=== PATIENT | female | born 1925 | race Caucasian/White ===

== ENCOUNTER 2017-07-02 23:02 | Emergency (ER) | payer OTHER ==
[~2017-07-02] VITALS: Ht 152.4 cm; Wt 45.4 kg
[~2017-07-02 23:02] MED LIST: ACET-1571 PO; ACET325T21 PO; ALPR0.254 PO; ASPI325T70 PO; ASPI325T8 PO; BIMA2.5D OP; BRIM5DRO3 OP; CEPH-264 PO; DICL100G18 TP; DOCU-109 PO; DONE10TA14 PO; Doxycycline Hyclate PO; ERGO500027 PO; FLUT9.9S NS; HYDR12.53 PO; LOSA50TA6 PO; MAG355OR32 PO; MAGN400O7 PO; MEMA10TA PO; MEMA21CA PO; METO-239 PO; MULT-245 PO; POLY15DR18 OP; RANI150T6 PO; SIMV10TA3 PO; TELM80TA5 PO; [UNRECOGNIZED DRUG - CODE] PO
--- NOTE | 2017-07-03 00:05 | RAD ---
PQRS Compliance Statement: One or more of the following individualized dose reduction techniques were utilized for this examination: 1. Automated exposure control 2. Adjustment of the mA and/or kV according to patient size 3. Use of iterative reconstruction technique CT head and cervical spine without contrast 07/02/2017 11:43 PM INDICATION: Fall COMPARISON: None available TECHNIQUE: Multiple axial CT images of the head were obtained from skull base through the vertex without intravenous contrast. Multiple axial CT images of the cervical spine were obtained without intravenous contrast. Coronal and sagittal reformats are provided. FINDINGS: Head: Ventricles, sulci and basal cisterns are prominent, compatible with generalized cerebral volume loss. Low attenuation the periventricular white matter is compatible with chronic small vessel ischemic changes. There is a hyperattenuating focus in the left cerebellum measuring 4 mm which may represent intraparenchymal hemorrhage versus a cavernoma. A right parietal scalp hematoma is present. There is no hydrocephalus. Hernández-white matter differentiation is normal. There is no mass, mass effect or midline shift. Posterior fossa is normal in appearance. Visualized portions of the orbits are normal. Mastoid air cells are well aerated. Scalp and calvaria are normal. Cervical spine: There is grade 1 anterolisthesis of C4 on C5. Degenerative changes are noted at the atlantoaxial articulation. Skull base is intact. Craniocervical junction is normal. There is osseous fusion of C5-C6. Disc height loss is noted at C6-C7. There is focal kyphosis at C5-C6. Findings are stable dating back to October 31, 2014. No acute fracture is identified. There is severe cervical spondylosis. There is moderate spinal canal stenosis at C5-C6. There is no prevertebral soft tissue swelling. There is moderate mucosal thickening of the right maxillary sinus. Thyroid gland is normal in appearance. Mild emphysematous changes are noted in the lungs. Biapical pleural-parenchymal scarring is present. IMPRESSION: 1. Right parietal scalp hematoma is present. No adjacent intracranial hemorrhage is present. However, there is a 4 mm hyperattenuating focus in the left cerebellum which may represent a tiny focus of intraparenchymal hemorrhage versus more likely a cavernoma. Further evaluation with MRI may be of benefit. 2. No acute fracture of the cervical spine. Advanced cervical spondylosis. Critical findings were discussed with Dr. Sears at 12:00 AM on 07/03/2017. Electronically signed by: Kath Lynn MD (07/03/2017 12:02 AM) [facility]
--- NOTE | 2017-07-03 02:21 | RAD ---
EXAM: MRI BRAIN WITHOUT CONTRAST. HISTORY: Fall, head injury, dementia. Left cerebellar lesion. TECHNIQUE: Magnetic resonance images of the brain were obtained without intravenous contrast. Fast technique was used given patient motion. COMPARISON: CT July 02, 2017. FINDINGS: There are limitations from motion artifact on some series. The examination remains diagnostic for the following. There is a focus of susceptibility-weighted signal loss medially in the left cerebellar hemisphere at the site of concern. There is no surrounding vasogenic edema to indicate acute hemorrhage. This is consistent with a small cavernoma. Chronic microhemorrhages are seen in the right cerebellar hemisphere and right temporal lobe. A right thalamic lacunar has associated chronic blood products. There is no diffusion restriction. Extensive white matter T2/FLAIR hyperintensity is consistent severe chronic microangiopathic change. Prominence of the lateral ventricles and hemispheric sulci indicates moderate atrophy. There is an air-fluid level in the right maxillary sinus. There are changes of bilateral cataract surgery. The temporal bones are unremarkable. The calvarium demonstrates no suspicious lesions. There is a moderate right parietal scalp hematoma. There is anterolisthesis at each level from C3 through C5. This measures 4 mm at C4-5. Refer to the recent cervical spine study for more detail. IMPRESSION: 1. The left cerebellar focus of concern is consistent with a chronic hemorrhage or cavernoma. No acute hemorrhage. CT follow-up could be performed if there is persistent concern. 2. 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 3. Moderate atrophy. 4. Acute right maxillary sinus disease. 5. Refer to the recent CT of the cervical spine for more information. Electronically signed by: Osmin Longoria MD (07/03/2017 2:17 AM) [facility]
[2017-07-03] MEDS ORDERED: LIDOCAINE 1% PF 2 ML VIAL. ONE (02:37)
--- NOTE | 2017-07-03 02:50 | PHYS DOC ---
Past Medical History Past Medical History: Dementia, Depression, Glaucoma, Heart Disease, Hypertension Past Surgical History: Cancer Surgery Additional Past Surgical Histo: stent x1 Alcohol Use: None Drug Use: None Adult General Chief Complaint Chief Complaint: MECHANICAL FALL HPI HPI Patient is a 89 year old [f__sex] who presents with [] Review of Systems Review of Systems Constitutional: Denies fever or chills [] Eyes: Denies change in visual acuity, redness, or eye pain [] HENT: Denies nasal congestion or sore throat [] Respiratory: Denies cough or shortness of breath [] Cardiovascular: No additional information not addressed in HPI [] GI: Denies abdominal pain, nausea, vomiting, bloody stools or diarrhea [] : Denies dysuria or hematuria [] Musculoskeletal: Denies back pain or joint pain [] Integument: Denies rash or skin lesions [] Neurologic: Denies headache, focal weakness or sensory changes [] Endocrine: Denies polyuria or polydipsia [] All other systems were reviewed and found to be within normal limits, except as documented in this note. Current Medications Current Medications Current Medications Medications (Trade) Dose Ordered Sig/Galina Start Time Stop Time Status Last Admin Dose Admin Lidocaine HCl (Xylocaine-Mpf 1% Vial) 2 ml STK-MED ONCE 07/03/17 02:37 07/03/17 02:38 DC Allergies Allergies Allergies Coded Allergies Type Severity Reaction Last Updated Verified clemastine Allergy Intermediate Hives 01/31/14 Yes pseudoephedrine Allergy Intermediate Hives 01/31/14 Yes ketoprofen Adverse Reaction Intermediate Nausea and Vomiting 10/22/14 Yes nitrofurantoin Adverse Reaction Intermediate Nausea 10/22/14 Yes ofloxacin Adverse Reaction Intermediate Nausea and Vomiting 10/22/14 Yes trazodone Adverse Reaction Intermediate Nausea 10/22/14 Yes Physical Exam Physical Exam Constitutional: Well developed, well nourished, no acute distress, non-toxic appearance. [] HENT: Normocephalic, atraumatic, bilateral external ears normal, oropharynx moist, no oral exudates, nose normal. [] Eyes: PERRLA, EOMI, conjunctiva normal, no discharge. [] Neck: Normal range of motion, no tenderness, supple, no stridor. [] Cardiovascular:Heart rate regular rhythm, no murmur [] Lungs & Thorax: Bilateral breath sounds clear to auscultation [] Abdomen: Bowel sounds normal, soft, no tenderness, no masses, no pulsatile masses. [] Skin: Warm, dry, no erythema, no rash. [] Back: No tenderness, no CVA tenderness. [] Extremities: No tenderness, no cyanosis, no clubbing, ROM intact, no edema. [] Neurologic: Alert and oriented X 3, normal motor function, normal sensory function, no focal deficits noted. [] Psychologic: Affect normal, judgement normal, mood normal. [] Current Patient Data Vital Signs Vital Signs Date Time Temp Pulse Resp B/P (MAP) Pulse Ox O2 Delivery O2 Flow Rate FiO2 07/03/17 00:38 61 18 97 07/02/17 23:45 Room Air 07/02/17 23:23 98.1 211/87 (128) 98.1 EKG EKG [] Radiology/Procedures Radiology/Procedures [] Course & Med Decision Making Course & Med Decision Making Pertinent Labs and Imaging studies reviewed. (See chart for details) [] Dragon Disclaimer Dragon Disclaimer This electronic medical record was generated, in whole or in part, using a voice recognition dictation system. Departure Departure Impression: Primary Impression: Head trauma Additional Impressions: Abnormal CT scan of head Fall Alzheimer's dementia Disposition: HOME, SELF-CARE Condition: IMPROVED Referrals: MÓNICA MULLER (PCP) Patient Instructions: Alzheimer's Disease (AD), Diagnosis, Fall Prevention and Home Safety, Head Injury, Adult, Laceration Care, Adult, Staple Wound Closure, [id number] Additional Instructions: Scalp laceration: She will need a wound check in 2 days. Please do a staple removal in 10 days. Problem Qualifiers MARK PENALOZA MD Jul 03, 2017 02:50
[2017-07-03 04:52] VITALS: BP 182/71
--- NOTE | 2017-07-03 10:21 | RAD ---
HIP RIGHT 2V WITH PELVIS Clinical Indication: trauma, hip pain Comparison: None. Findings: No acute pelvic fracture. No acute fracture or dislocation of the right hip. Soft tissues unremarkable. IMPRESSION: No acute fracture.
== END 2017-07-03 03:39 | disposition home or self-care (01) ==
LOC: ER 23:02
DX: S09.90XA Unspecified injury of head, initial encounter (principal); I11.9 Hypertensive heart disease without heart failure; G30.9 Alzheimer's disease, unspecified; F02.80 Dementia in other diseases classified elsewhere, unspecified severity, without behavioral disturbance, psychotic disturbance, mood disturbance, and anxiety; Z88.1 Allergy status to other antibiotic agents; Z88.8 Allergy status to other drugs, medicaments and biological substances; W18.39XA Other fall on same level, initial encounter; Y93.89 Activity, other specified; Y99.8 Other external cause status; Y92.89 Other specified places as the place of occurrence of the external cause
CPT/HCPCS: 70450; 70551; 72125; 73502; 99284-25